=== PATIENT | male | born 1995 | race African-American/Black ===

== ENCOUNTER 2017-02-10 01:30 | Emergency (ER) | payer SELFPAY ==
[~2017-02-10] VITALS: Ht 180.3 cm; Wt 74.8 kg
[2017-02-10] MEDS ORDERED: LIDOCAINE HCL 2% 20 ML VIAL TP ONE (02:00)
[2017-02-10] MEDS ORDERED: SODIUM BICARBONATE 4.2 % (NEUT) 5 ML VIAL TP ONE (02:00)
[2017-02-10] MEDS ORDERED: NEOMY/BACITRA/POLYMYXIN B OINT UD PACKET TP ONE ×2 (02:00→02:06)
[2017-02-10] MEDS ORDERED: LET TOPICAL SOLUTION 8 ML UDC TOP ONE (02:00)
[2017-02-10] MEDS ORDERED: LET TOPICAL SOLUTION 8 ML UDC ONE (02:06)
[2017-02-10] MEDS ORDERED: SULFAMETH/TRIMETH 800/160 MG TABLET PO ONE (02:45)
[2017-02-10] MEDS ORDERED: SULFAMETH/TRIMETH 800/160 MG TABLET ONE (03:02)
--- NOTE | 2017-02-10 03:07 | NUR ---
Patient discharged to home in stable conditon. Written and verbal after care instructions given. Patient verbalizes understanding of instructions.
== END 2017-02-10 03:08 | disposition home or self-care (01) ==
LOC: ER 01:44
DX: S81.811A Laceration without foreign body, right lower leg, initial encounter (principal); X58.XXXA Exposure to other specified factors, initial encounter; Y93.89 Activity, other specified; Y99.8 Other external cause status; Y92.89 Other specified places as the place of occurrence of the external cause
CPT/HCPCS: 12002; 73590; 99284; A4217; A4663; J3490